=== PATIENT | female | born 1930 | race Caucasian/White ===

== ENCOUNTER 2018-06-04 11:38 | Emergency (ER) | payer MEDICARE, BC ==
[~2018-06-04] VITALS: Ht 165.1 cm; Wt 73.6 kg
[2018-06-04 11:41] VITALS: TEMP 98.6
[2018-06-04 12:13] LABS: BASO % 0.1 % (0.0-2.0); EOS # 0.1 (0.0-0.7); EOS % 0.8 % (0-4.0); GRAN # 7.2 (1.4-6.5); GRAN % 73.8 % (42.2-75.2); HEMATOCRIT 46.5 % (37.0-47.0); HEMOGLOBIN 15.3 g/dl (12.5-16.0); LYMPH # 1.8 (1.2-3.4); MEAN CELL VOLUME 91 fl (80.0-100.0); MEAN CORPUSCULAR HEMOGLOBIN 30 pg (27.0-31.0); MEAN CORPUSCULAR HGB CONC 33 g/dl (33.0-37.0); MEAN PLATELET VOLUME 10.3 fl (7.4-10.4); MONO # 0.7 (0.1-0.6); PLATELET COUNT 231 K/mm3 (130-400); RED BLOOD COUNT 5.14 M/mm3 (4.10-5.30); REDCELL DISTRIBUTION WIDTH-CV 14.2 % (11.5-14.5)
[2018-06-04 12:18] LABS: INR 1.4 (0.8-3.0); PROTHROMBIN TIME 16.3 SECONDS (9.7-12.8)
[2018-06-04] MEDS ORDERED: ELIQUIS 2.5 (12:19)
[2018-06-04] MEDS ORDERED: ZESTRIL 5MG5 MG (12:20)
[2018-06-04] MEDS ORDERED: KAPSPARGO SPRIN25 MG (12:22)
[2018-06-04] MEDS ORDERED: ULTRAM 50MG TAB50 MG PO (12:22)
[2018-06-04 12:23] LABS: ALANINE AMINOTRANSFERASE 41 U/L (9-52); ALKALINE PHOSPHATASE 58 U/L (50-136); ANION GAP 7 mmol/L (7-16); AST,SGOT 19 U/L (15-37); BILIRUBIN,TOTAL 0.8 mg/dL (0.0-1.0); BLOOD UREA NITROGEN 32 mg/dL (7-17); CALCIUM 10.2 mg/dL (8.4-10.2); CARBON DIOXIDE 34 mmol/L (22-30); CHLORIDE 98 mmol/L (98-107); CREATININE, serum 1.28 mg/dL (0.52-1.25); GLUCOSE 139 mg/dL (74-106); POTASSIUM 4.1 mmol/L (3.4-5.0); SODIUM 139 mmol/L (137-145)
[2018-06-04] MEDS ORDERED: VITAMINC1000TA PO (12:23)
[2018-06-04] MEDS ORDERED: MULTI VITAMINS1 TAB PO (12:24)
[2018-06-04 12:35] LABS: TROPONIN-I < 0.012 ng/mL (0.000-0.034)
[2018-06-04 12:59] LABS: COLLECTION METHOD CLEAN CATCH
[2018-06-04] MEDS ORDERED: ELIQUIS 5MG PO (12:59)
[2018-06-04] MEDS ORDERED: PRINZIDE 12.5 M1 TA1 PO (13:00)
[2018-06-04] MEDS ORDERED: PRINZIDE 12.5 M1 TA1 (13:00)
[2018-06-04 13:05] LABS: MUCOUS Present /lpf; PH 6 (5-8); SQUAMOUS EPITHELIAL 0-2 /hpf; URINE APPEARANCE Hazy; URINE BACTERIA Rare /hpf; URINE BILIRUBIN Negative (NEGATIVE); URINE BLOOD Negative (NEGATIVE); URINE COLOR Yellow; URINE GLUCOSE Negative (NEGATIVE); URINE KETONE Negative (NEGATIVE); URINE LEUKOCYTE ESTERASE 1+ (NEGATIVE); URINE NITRATE Negative (NEGATIVE); URINE PROTEIN(semi-quant) Negative (NEGATIVE); URINE UROBILINOGEN Negative (NEGATIVE)
[2018-06-04] MEDS ORDERED: CEPHALEXIN500 M1 PO (13:17)
[2018-06-04 13:22] VITALS: BP 166/71; PULSE 58
== END 2018-06-04 13:36 | disposition home or self-care (01) ==
LOC: COL.ER 11:38
PROVIDERS: Emergency Medicine
DX: N39.0 Urinary tract infection, site not specified (principal); R55 Syncope and collapse; I10 Essential (primary) hypertension; E78.5 Hyperlipidemia, unspecified; I48.91 Unspecified atrial fibrillation; Z90.49 Acquired absence of other specified parts of digestive tract
CPT/HCPCS: J7030

== ENCOUNTER 2018-07-16 14:29 | Observation (INO) | payer MEDICARE, BC ==
[~2018-07-16] VITALS: Ht 165.1 cm; Wt 75.8 kg
[~2018-07-16 14:29] MED LIST: CEPHALEXIN500 M1 PO; ELIQUIS 2.5; ELIQUIS 5MG PO; MULTI VITAMINS1 TAB PO; PRINZIDE 12.5 M1 TA1; PRINZIDE 12.5 M1 TA1 PO; TOPROL XL 50MG50 MG PO; ULTRAM 50MG TAB50 MG PO; VITAMINC1000TA PO; ZESTRIL 5MG5 MG
[2018-07-16 16:04] LABS: BASO % 0.3 % (0.0-2.0); EOS % 0.1 % (0-4.0); GRAN # 13.9 (1.4-6.5); GRAN % 93.7 % (42.2-75.2); HEMATOCRIT 49.3 % (37.0-47.0); HEMOGLOBIN 16.2 g/dl (12.5-16.0); LYMPH # 0.2 (1.2-3.4); LYMPH % 1.5 % (20.0-51.0); MEAN CELL VOLUME 89 fl (80.0-100.0); MEAN CORPUSCULAR HEMOGLOBIN 29 pg (27.0-31.0); MEAN CORPUSCULAR HGB CONC 33 g/dl (33.0-37.0); MEAN PLATELET VOLUME 10.2 fl (7.4-10.4); MONO # 0.6 (0.1-0.6); MONO % 3.9 % (1.7-9.3); PLATELET COUNT 203 K/mm3 (130-400); RED BLOOD COUNT 5.57 M/mm3 (4.10-5.30); REDCELL DISTRIBUTION WIDTH-CV 13.9 % (11.5-14.5)
[2018-07-16 16:11] LABS: INR 1.2 (0.8-3.0); PROTHROMBIN TIME 13.7 SECONDS (9.7-12.8)
[2018-07-16 16:15] LABS: ALANINE AMINOTRANSFERASE 19 U/L (9-52); ALBUMIN 4.3 gm/dL (3.5-5.0); ALKALINE PHOSPHATASE 65 U/L (50-136); ANION GAP 14 mmol/L (7-16); AST,SGOT 20 U/L (15-37); BILIRUBIN,TOTAL 1.1 mg/dL (0.0-1.0); BLOOD UREA NITROGEN 33 mg/dL (7-17); CALCIUM 10.3 mg/dL (8.4-10.2); CARBON DIOXIDE 22 mmol/L (22-30); CHLORIDE 102 mmol/L (98-107); CREATININE, serum 1.18 mg/dL (0.52-1.25); GLUCOSE 149 mg/dL (74-106); POTASSIUM 4.2 mmol/L (3.4-5.0); SODIUM 138 mmol/L (137-145); TOTAL PROTEIN 7.5 gm/dL (6.4-8.2)
[2018-07-16 16:28] LABS: TROPONIN-I < 0.012 ng/mL (0.000-0.035)
[2018-07-16] MEDS ORDERED: VITAMIN D31000 I1 PO (21:10)
[2018-07-16] MEDS ORDERED: PREDFORTE5ML (21:11)
[2018-07-16] MEDS ORDERED: REFRESH TEARS 330 ML OP (21:12)
[2018-07-16 21:20] VITALS: BP 167/60; PULSE 86
--- NOTE | 2018-07-16 23:00 | NUR ---
PT ADMITTED TO FLOOR. NO C/O PAIN. FAMILY AT BEDSIDE. STATED ABBRASION ON FORHEAD WAS FROM HER LAYING HERSELF ON BATHROOM FLOOR. PT APPEARS WOBBLY WITH AMBULATION. VOICED SHE WANTS SLEEPING MED DUE TO BEING IN A DIFFERENT BED THEN HER PERSONAL ONE, JOSE ORDER OBTIANED AND STARTED.
[2018-07-17] VITALS (8 sets, daily range): BP systolic 129–172; BP diastolic 41–82; PULSE 75–86; TEMP 98.3–99.6
--- NOTE | 2018-07-17 06:00 | NUR ---
PT APPEARED TO HAVE SLEPT WELL. IV FLUIDS INFUSING WITHOUT ISSUE. NO ISSUES OR CONSERNS VOICED OVERNIGHT.
[2018-07-17 06:16] LABS: BASO % 0.1 % (0.0-2.0); GRAN # 7.8 (1.4-6.5); GRAN % 84.5 % (42.2-75.2); HEMATOCRIT 41.3 % (37.0-47.0); LYMPH # 0.6 (1.2-3.4); LYMPH % 6.5 % (20.0-51.0); MEAN CELL VOLUME 91 fl (80.0-100.0); MEAN CORPUSCULAR HEMOGLOBIN 29 pg (27.0-31.0); MEAN CORPUSCULAR HGB CONC 32 g/dl (33.0-37.0); MEAN PLATELET VOLUME 10.7 fl (7.4-10.4); MONO # 0.8 (0.1-0.6); MONO % 8.5 % (1.7-9.3); PLATELET COUNT 172 K/mm3 (130-400); RED BLOOD COUNT 4.53 M/mm3 (4.10-5.30); REDCELL DISTRIBUTION WIDTH-CV 14.2 % (11.5-14.5)
[2018-07-17 06:29] LABS: CALCIUM 8.8 mg/dL (8.4-10.2); CREATININE, serum 1.15 mg/dL (0.52-1.25); POTASSIUM 3.7 mmol/L (3.4-5.0)
[2018-07-17 06:32] LABS: HEMOGLOBIN 13.1 g/dl (12.5-16.0)
--- NOTE | 2018-07-17 07:00 | NUR ---
Report received from RUDI Guo. pT in bed resting with eyes closed, will continue to monitor.
--- NOTE | 2018-07-17 10:37 | NUR ---
Assessment charted. Pt report blood pressure of 120/60's is low for her, will hold off on giving BP meds and ask hospitalist team. Pt reports pain at 5/10 in back, PRN pain meds provided. Pt awake nad alert, eating breakfast, assisted with set up as pt has macular degeneration and vision issues. Denies any other needs now but has intermittent incontinence of stool, will notify when this occurs so we can provide prompt care. IVF to L a/c. Will continue to monitor.
--- NOTE | 2018-07-17 15:48 | NUR ---
JEAN CARLOS attended clinical rounding and met with patient and daughter to discuss discharge planning. Patient lives at [facility] in independent living. Her PCP is Dr Ramos and she obtains her medications from [facility]. JEAN CARLOS called [facility] and requested DPOA and placed it on the chart. JEAN CARLOS will continue to follow to assist in discharge needs.
--- NOTE | 2018-07-17 18:02 | NUR ---
Pt had good day. Had 5 loose stools this shift, all of which were continent. Discussed positive result for the norovirus and need to have good hand hygeine and contact precautions. Pt verbalized understanding as well as daughter at bedside. Pt resting in bed, ordered supper. Denies pain, will give bedside shift report to nightshift nurse who will resume care.
--- NOTE | 2018-07-17 23:00 | NUR ---
UPON TAKING PT HS MEDS TO HER THIS EVENING, PT WAS ADAMANT THAT SHE DIDNT GET HER B/P MEDS THIS AM. PT MEDS WHERE CHARTED THAT THEY WHERE GIVEN AND THIS NURSE ALSO CHECKED THE OMNICELL WELL TO MAKE SURE MEDS WHERE PULLED, MEDS APPEARED TO HAVE BEEN GIVEN. PT WAS UPSET THAT THIS NURSE WOULDNT GIVE HER MEDS TO HER. REASSURED PT THAT IT LOOKED IF THEY WHERE GIVEN AND THAT I COULDNT REGIVE THE MEDS SINCE THEY HAD BEEN GIVEN. PT REMAINED UPSET AND STATED THAT SHE WAS GOING TO COMPLAIN TO THE PHYSICIAN AND THE BOARD OF THE HOSPIAL SINCE WE WERENT GIVING HER MEDS, AND THAT SINCE SHE HAS A HEART CONDITION SHE WAS WORRIED IT WAS GOING TO WORSEN WITHOUT HER MEDICATION. THIS NURSE PROVIDED REASSURANCE AND STATED THAT I WAS SYMPATHETIC TO THE SITUATION AND REINFORMED HER THAT I WOULDNT BE ABLE TO GIVE HER THE MEDS DUE TO THE CHANCE OF OVER DOSING HER ON THE MEDS.
[2018-07-18 01:12] VITALS: BP 180/62; PULSE 83; TEMP 98.4
[2018-07-18 05:57] LABS: BASO % 0.3 % (0.0-2.0); EOS # 0.1 (0.0-0.7); EOS % 1.1 % (0-4.0); GRAN # 4.8 (1.4-6.5); GRAN % 68.8 % (42.2-75.2); HEMATOCRIT 37.7 % (37.0-47.0); HEMOGLOBIN 12.2 g/dl (12.5-16.0); LYMPH # 1.2 (1.2-3.4); LYMPH % 17.6 % (20.0-51.0); MEAN CELL VOLUME 91 fl (80.0-100.0); MEAN CORPUSCULAR HEMOGLOBIN 29 pg (27.0-31.0); MEAN CORPUSCULAR HGB CONC 32 g/dl (33.0-37.0); MEAN PLATELET VOLUME 10.1 fl (7.4-10.4); MONO # 0.8 (0.1-0.6); MONO % 11.8 % (1.7-9.3); PLATELET COUNT 155 K/mm3 (130-400); RED BLOOD COUNT 4.16 M/mm3 (4.10-5.30); REDCELL DISTRIBUTION WIDTH-CV 14.1 % (11.5-14.5)
[2018-07-18 06:19] LABS: CALCIUM 8.2 mg/dL (8.4-10.2); CREATININE, serum 0.91 mg/dL (0.52-1.25); MAGNESIUM 1.6 mg/dL (1.6-2.3); POTASSIUM 3.5 mmol/L (3.4-5.0)
--- NOTE | 2018-07-18 07:21 | NUR ---
pt has appeared to have sleep well throughout noc. no c/o pain. no noted n/v
[2018-07-18 08:23] VITALS: BP 128/51; PULSE 100; TEMP 98.7
--- NOTE | 2018-07-18 08:30 | NUR ---
Assessment completed, alert/oriented but is forgetfull, reporting generalized chronic pain and requested her Ultram which she stated she takes every morning, she stated she did have some diarrhea during the night but it has slowed down sence coming to the hospital, C-diff was negative/ but is in contact isolation for + Noravirus, I have given scheduled a.m meds and will give Ultram afte breakfast per her request, patient is upset that she did not receive medications at all yesterday/ they were documented on however that they were given by the day shift nurse, heart RRR/ proxysmal a.fib but rate controlled, lungs CTA/ no reps.difficulty, denies other needs
[2018-07-18 11:29] VITALS: BP 128/60; PULSE 70; TEMP 98.5
--- NOTE | 2018-07-18 16:40 | NUR ---
Discharge instructions reviewed with the patient and her daughter, instructed to follow up with PCP as we have scheduled for her, instructed to schedule an appointment with her OBGYN, explained that there are no NEW meds and to continue all previous home meds, drink plenty of water/ gatorade to stay hydrated as long as she is having diarrhea, IV and tele removed, leaving with her daughter, I personally escorted her out to the vehicle by wheelchair
== END 2018-07-18 16:46 | disposition home or self-care (01) ==
LOC: COL.ER 14:29 → MEDICAL 19:17
PROVIDERS: Emergency Medicine; Nurse Practitioner; Physician Assistant; ADMIT Hospitalist
DX: R55 Syncope and collapse (principal); E86.0 Dehydration; R19.7 Diarrhea, unspecified; A08.11 Acute gastroenteropathy due to Norwalk agent; I48.91 Unspecified atrial fibrillation; I10 Essential (primary) hypertension; N85.8 Other specified noninflammatory disorders of uterus; Z79.01 Long term (current) use of anticoagulants; Z79.51 Long term (current) use of inhaled steroids; Z90.49 Acquired absence of other specified parts of digestive tract; Z88.0 Allergy status to penicillin; Z88.2 Allergy status to sulfonamides; Z88.5 Allergy status to narcotic agent
CPT/HCPCS: G0378; J2405; J7030; Q9967